=== PATIENT | male | born 1965 | race Caucasian/White ===

== ENCOUNTER 2017-11-11 17:14 | Inpatient (IN) | payer SELFPAY ==
[~2017-11-11] VITALS: Ht 172.7 cm; Wt 79.4 kg
[2017-11-11 19:22] LABS: EOSINOPHILS % 0.1 % (0.0-5.0); HEMATOCRIT. 46.9 % (42.0-52.0); HEMOGLOBIN. 16.2 g/dL (14.0-18.0); LYMPHOCYTES % 27.3 % (20.0-50.0); MEAN CORPUSCULAR HEMOGLOBIN 31.3 pg (28.0-32.0); MEAN CORPUSCULAR VOLUME 90.8 fL (80.0-94.0); MEAN PLATELET VOLUME 8.8 fl (7.4-10.4); MONOCYTES % 8.1 % (2.0-8.0); NEUTROPHILS % 63.5 % (40.0-76.0); PLATELET 227 x1000/uL (130-400); RED BLOOD CELL COUNT 5.17 mill/uL (4.7-6.1); RED CELL DISTRIBUTION WIDTH 13.2 % (11.6-14.6)
[2017-11-11 19:23] LABS: CHLORIDE 102 mEq/L (98-107)
[2017-11-11 19:27] LABS: ETHANOL BLOOD 93 mg/dL
[2017-11-11 19:50] LABS: CLARITY URINE CLEAR (CLEAR); COLOR URINE YELLOW (YELLOW); KETONES URINE 1+ (NEGATIVE); LEUKOCYTE ESTERASE URINE NEGATIVE (NEGATIVE); NITRITE URINE NEGATIVE (NEGATIVE); OCCULT BLOOD URINE NEGATIVE (NEGATIVE); PH URINE 5.5 (4.5-8.0); PROTEIN URINE TRACE (NEGATIVE); SPECIFIC GRAVITY URINE 1.021 (1.005-1.030)
[2017-11-11 20:05] LABS: *AMPHETAMINES SCREEN URINE NEGATIVE (NEGATIVE); *BARBITURATES SCREEN URINE NEGATIVE (NEGATIVE); *BENZODIAZEPINES SCREEN URINE NEGATIVE (NEGATIVE); *COCAINE SCREEN URINE NEGATIVE (NEGATIVE); CANNABINOID URINE SCREEN NEGATIVE (NEGATIVE); METHADONE URINE SCREEN NEGATIVE (NEGATIVE); OPIATES URINE SCREEN NEGATIVE (NEGATIVE)
[2017-11-11 20:06] LABS: PHENCYCLIDINE URINE SCREEN NEGATIVE (NEGATIVE)
[2017-11-12] MEDS: GLIPIZIDE 5MG TABLET PO SCH ×2 (08:24→17:00)
[2017-11-12] MEDS: METFORMIN HCL 500MG TABLET PO SCH ×3 (09:35→18:10)
[2017-11-12] MEDS ORDERED: METFORMIN HCL 500MG TABLET PO ONE (12:15)
[2017-11-12] MEDS ORDERED: SODIUM CHLORIDE 0.9% 1,000 ML IV ONE ×2 (13:45→19:28)
[2017-11-12] MEDS ORDERED: SODIUM CHLORIDE 0.9% 1,000 ML IV NR (20:04)
[2017-11-13] MEDS ORDERED: SODIUM CHLORIDE 0.9% 1,000 ML IV ONE (05:45)
[2017-11-13] MEDS ORDERED: METFORMIN HCL 500MG TABLET PO NR (20:45)
[2017-11-13] MEDS ORDERED: GLIPIZIDE 5MG TABLET PO NR (21:30)
[2017-11-13] MEDS ORDERED: GLIP5TAB3 PO (21:39)
[2017-11-13] MEDS ORDERED: METF500T PO (21:39)
[2017-11-13 22:45] VITALS: BP 137/82
[2017-11-13] MEDS ORDERED: DEXTROSE 50% WATER 50ML SYRINGE IV PRN (23:45)
[2017-11-13] MEDS ORDERED: HYDROCODONE/ACETAMINOPHEN 5/325MG TABLET PO PRN (23:45)
[2017-11-14 04:00] VITALS: BP 109/68
[2017-11-14] MEDS: BLOOD SUGAR DIAGNOSTIC STRIP TEST SCH ×3 (06:04→18:29)
[2017-11-14 07:21] LABS: CHLORIDE 101 mEq/L (98-107)
[2017-11-14 07:22] LABS: BASOPHILS % 0.5 % (0.0-2.0); HEMATOCRIT. 48.3 % (42.0-52.0); HEMOGLOBIN. 16.5 g/dL (14.0-18.0); LYMPHOCYTES % 31.2 % (20.0-50.0); MEAN CORPUSCULAR HEMOGLOBIN 31.4 pg (28.0-32.0); MEAN CORPUSCULAR VOLUME 91.8 fL (80.0-94.0); MEAN PLATELET VOLUME 9.1 fl (7.4-10.4); MONOCYTES % 8.1 % (2.0-8.0); NEUTROPHILS % 59.2 % (40.0-76.0); PLATELET 225 x1000/uL (130-400); RED BLOOD CELL COUNT 5.26 mill/uL (4.7-6.1); RED CELL DISTRIBUTION WIDTH 13.7 % (11.6-14.6)
[2017-11-14 08:00] VITALS: BP 123/83
[2017-11-14] MEDS: INSULIN LISPRO 100 UNITS/ML SUBCUT SCH ×3 (08:32→18:30)
[2017-11-14] MEDS: METFORMIN HCL 500MG TABLET PO SCH ×2 (08:33→18:35)
[2017-11-14] MEDS ORDERED: ENOXAPARIN 40MG/0.4ML SYR SUBCUT SCH (09:00)
[2017-11-14 12:00] VITALS: BP 130/88
[2017-11-14 16:00] VITALS: BP 124/83
[2017-11-14 17:50] VITALS: BP 124/83
[2017-11-14] MEDS ORDERED: INSULIN GLARGINE UD 100 UNITS/ML SYR SUBCUT SCH ×2 (21:00→22:00)
== END 2017-11-14 19:12 | disposition home or self-care (01) | DRG 420 ==
LOC: ER 17:14 → 7WST 11-13 13:47 → ENRESERV 11-13 22:11 → ER 11-13 22:31
PROVIDERS: ADMIT Internal Medicine Nephrology; ATTEND Internal Medicine Nephrology
DX: E11.65 Type 2 diabetes mellitus with hyperglycemia (principal); G92 Toxic encephalopathy; F10.129 Alcohol abuse with intoxication, unspecified; R45.851 Suicidal ideations
CPT/HCPCS: 36415; 70450; 80048; 80053; 80305; 81003; 82962; 85025; 96360; 96361; 99285; G0482; J1650; J1815; J7030

== ENCOUNTER 2018-01-16 10:24 | Emergency (ER) | payer MEDICAID ==
[~2018-01-16] VITALS: Ht 170.2 cm; Wt 69.0 kg
[~2018-01-16 10:24] MED LIST: GLIP5TAB3 PO; METF500T PO
[2018-01-16] MEDS ORDERED: ACETAMINOPHEN WITH CODEINE 300/30MG TABLET PO ONE (11:15)
[2018-01-16 12:32] VITALS: BP 145/87
== END 2018-01-16 12:34 | disposition home or self-care (01) ==
LOC: ER 10:24
DX: S02.40CA Maxillary fracture, right side, initial encounter for closed fracture (principal); S05.11XA Contusion of eyeball and orbital tissues, right eye, initial encounter; W11.XXXA Fall on and from ladder, initial encounter; Y93.89 Activity, other specified; Y92.89 Other specified places as the place of occurrence of the external cause; Y99.0 Civilian activity done for income or pay; E11.9 Type 2 diabetes mellitus without complications
CPT/HCPCS: 70486; 82962; 99284

== ENCOUNTER 2019-01-24 15:23 | Emergency (ER) | payer SELFPAY ==
[~2019-01-24] VITALS: Ht 165.1 cm; Wt 66.0 kg
[2019-01-24] MEDS ORDERED: SODIUM CHLORIDE 0.9% 1,000 ML IV ONE ×2 (15:42→18:15)
[2019-01-24] MEDS ORDERED: HALOPERIDOL LACTATE 5MG/ML VIAL IM ONE (16:45)
[2019-01-24 17:04] LABS: BASOPHILS % 0.6 % (0.0-2.0); EOSINOPHILS % 0.2 % (0.0-5.0); HEMATOCRIT. 47.5 % (42.0-52.0); HEMOGLOBIN. 16.1 g/dL (14.0-18.0); LYMPHOCYTES % 34.8 % (20.0-50.0); MEAN CORPUSCULAR HEMOGLOBIN 31.7 pg (28.0-32.0); MEAN CORPUSCULAR VOLUME 93.8 fL (80.0-94.0); MEAN PLATELET VOLUME 9.2 fl (7.4-10.4); MONOCYTES % 5.9 % (2.0-8.0); NEUTROPHILS % 58.5 % (40.0-76.0); PLATELET 197 x1000/uL (130-400); RED BLOOD CELL COUNT 5.07 mill/uL (4.7-6.1); RED CELL DISTRIBUTION WIDTH 13.3 % (11.6-14.6)
[2019-01-24 17:09] LABS: CHLORIDE 106 mEq/L (98-107)
[2019-01-24 17:13] LABS: ETHANOL BLOOD 183 mg/dL
[2019-01-24 18:50] LABS: CLARITY URINE CLEAR (CLEAR); COLOR URINE YELLOW (YELLOW); KETONES URINE NEGATIVE (NEGATIVE); LEUKOCYTE ESTERASE URINE NEGATIVE (NEGATIVE); NITRITE URINE NEGATIVE (NEGATIVE); OCCULT BLOOD URINE NEGATIVE (NEGATIVE); PROTEIN URINE NEGATIVE (NEGATIVE); SPECIFIC GRAVITY URINE 1.009 (1.005-1.030); UROBILINOGEN URINE 0.2 E.U./dL (0.2-1.0)
[2019-01-24 18:59] LABS: CANNABINOID URINE SCREEN NEGATIVE (NEGATIVE); PHENCYCLIDINE URINE SCREEN NEGATIVE (NEGATIVE)
[2019-01-24 19:00] LABS: *AMPHETAMINES SCREEN URINE NEGATIVE (NEGATIVE); *BENZODIAZEPINES SCREEN URINE NEGATIVE (NEGATIVE); *COCAINE SCREEN URINE NEGATIVE (NEGATIVE)
[2019-01-24 19:01] LABS: METHADONE URINE SCREEN NEGATIVE (NEGATIVE); OPIATES URINE SCREEN NEGATIVE (NEGATIVE)
[2019-01-24 19:09] LABS: *BARBITURATES SCREEN URINE NEGATIVE (NEGATIVE)
[2019-01-25] MEDS: SODIUM CHLORIDE 0.9% 1,000 ML IV SCH ×2 (02:24→10:24)
[2019-01-25] MEDS ORDERED: DIPHENHYDRAMINE 50MG/ML VIAL IV PRN (02:30)
[2019-01-25] MEDS ORDERED: MAGNESIUM/ALUMINUM HYDROXIDE/SIMETHICONE 30ML UDC PO PRN (02:30)
[2019-01-25] MEDS ORDERED: ENOXAPARIN 40MG/0.4ML SYR SUBCUT SCH (02:30)
[2019-01-25] MEDS ORDERED: ACETAMINOPHEN 325MG TABLET PO PRN (02:30)
[2019-01-25] MEDS ORDERED: GUAIFENESIN 200MG/10ML SUGAR FREE UDC PO PRN (02:30)
[2019-01-25] MEDS ORDERED: DEXTROSE 50% WATER 50ML SYRINGE IV PRN (02:30)
[2019-01-25] MEDS ORDERED: ONDANSETRON HCL 4MG/2ML INJ IV PRN (02:30)
[2019-01-25] MEDS ORDERED: LORAZEPAM 0.5MG TABLET PO PRN (02:30)
[2019-01-25] MEDS ORDERED: CLONIDINE 0.1MG TABLET PO PRN (02:30)
[2019-01-25] MEDS ORDERED: IPRATROPIUM/ALBUTEROL 0.5-3(2.5)MG/3ML NEB HHN PRN (02:30)
[2019-01-25] MEDS: BLOOD SUGAR DIAGNOSTIC STRIP TEST SCH ×2 (09:00→13:00)
[2019-01-25] MEDS: INSULIN LISPRO 100 UNITS/ML SUBCUT SCH ×2 (11:20→13:20)
[2019-01-25 12:22] LABS: CHLORIDE 103 mEq/L (98-107)
[2019-01-25] MEDS ORDERED: THIAMINE HCL 100 MG in SODIUM CHLORIDE 0.9% 49 ML IV SCH (14:30)
[2019-01-25] MEDS ORDERED: INSULIN GLARGINE UD 100 UNITS/ML SYR SUBCUT NR (15:30)
[2019-01-25 18:05] VITALS: BP 128/87
[2019-01-25] MEDS ORDERED: INSULIN LISPRO 100 UNITS/ML SUBCUT SCH (18:20)
== END 2019-01-25 18:21 | disposition home or self-care (01) ==
LOC: ER 15:23 → EDBEDREQ 21:27 → ER 01-25 18:21 → CANBEDREQ 01-25 20:35
DX: T65.91XA Toxic effect of unspecified substance, accidental (unintentional), initial encounter (principal); F10.129 Alcohol abuse with intoxication, unspecified; E87.2 Acidosis; F17.200 Nicotine dependence, unspecified, uncomplicated; Y92.89 Other specified places as the place of occurrence of the external cause; Y90.9 Presence of alcohol in blood, level not specified
CPT/HCPCS: 36415; 80048; 80053; 80305; 80307; 80320; 80329; 81003; 82962; 83036; 83605; 85025; 93005; 93970; 96365; 96372; 99284; J1630; J1815; J3411; J7030; G0480

== ENCOUNTER 2019-06-29 19:08 | Emergency (ER) | payer SELFPAY | END 2019-06-30 00:13 | disposition left against medical advice (07) | LOC: ER 19:08 | DX: F10.229 Alcohol dependence with intoxication, unspecified (principal); Z53.21 Procedure and treatment not carried out due to patient leaving prior to being seen by health care provider ==